=== PATIENT | male | born 1955 | race Caucasian/White ===

== ENCOUNTER 2019-07-02 10:33 | Day surgery (SDC) | payer OTHER ==
[~2019-07-02] VITALS: Ht 185.4 cm; Wt 104.3 kg
--- NOTE | ~2019-07-02 | O ---
[facility] [place] [address] OPERATIVE REPORT Name: KEREN REIS Room #: 150-5 [facility].#: [id number] Admission: 07/02/19 Attend Phys: Arvind Thurston MD Discharge: Date of : 55 Report #: [id number] THIS REPORT FOR: //name// CC: Arvind Thurston Physician staff KOURTNEY ALFARO DATE OF SERVICE: 07/02/2019 PREOPERATIVE DIAGNOSIS: Left hallux valgus. POSTOPERATIVE DIAGNOSIS: Left hallux valgus. PROCEDURE: Left foot Lapidus type procedure with modified Resendiz. SURGEON: Dr. Arvind Thurston. MARKETING OPERATIONS ANALYST: Otilia Eng. ANESTHESIA: General. ESTIMATED BLOOD LOSS: Minimal. DRAINS: No drains. TOURNIQUET TIME: 75 minutes. DESCRIPTION OF PROCEDURE: The patient brought to the operating room where he was placed under general anesthesia. Once under adequate general anesthesia, his left lower extremity was prepped and draped in sterile manner. The extremity was elevated, exsanguinated, tourniquet placed 300 mmHg. A dorsal incision over the first TMT joint was then made. This was dissected directly down to the joint. A sagittal saw was used to then release the joint completely along with a small osteotome. Once this was being achieved, the rotation pin was placed and subsequent reduction along with rotation was satisfactory. Therefore, we then sized for the cutting guide, which was then fixed into place with pins and the osteotomy through the joint was achieved. Subsequent to this, these cut pieces were removed. The joint was fenestrated with a drill after irrigation and subsequent fixation across the joint was then achieved with compression screws. The fluoroscopy was used throughout the case to verify position and alignment to be satisfactory. The dorsal and medial locking plates were then placed. Excellent fixation and alignment was achieved as verified under fluoroscopy. The distal incision over the metatarsal head was then made. This was dissected down through the soft tissue to the medial joint capsule [address] [address] OPERATIVE REPORT Name: KEREN REIS Kathy Room #: 150-5 [facility]..#: [id number] Admission: 07/02/19 Attend Phys: Arvind Thurston MD Discharge: Date of : 55 Report #: [id number] which was incised exposing the medial eminence. The medial eminence was then resected utilizing a sagittal saw and a rongeur. The wound was irrigated copiously and the capsular layer was closed with 0 Ethibond. A small incision in the first webspace was then made and dissection carried down to the lateral joint, which was then incised with a 15 blade and fenestrated for a modified Resendiz type procedure releasing the adducted tendon as well. The wounds were then irrigated copiously and closed with 2-0 Vicryl in subcutaneous tissues and saman for the skin. The wounds were dressed with Xeroform, 4 x 4s and a sterile soft compressive dressing was placed. Tourniquet was let down at 75 minutes. Toes were pink and warm with good capillary refill. There were no complications from the procedure. The patient tolerated the procedure well and went to the recovery room without incident. By: [id number] Arvind Thurston MD /nt
[~2019-07-02 10:33] MED LIST: CENTRUM SILVER1 EAC5 PO
[2019-07-02 11:43] VITALS: BP 147/85
[2019-07-02] MEDS ORDERED: PERCOCET 7.5-31 EAC1 PO (13:48)
[2019-07-02 14:21] VITALS: BP 147/85
== END 2019-07-02 15:00 | disposition home or self-care (01) ==
LOC: OR 10:33 → TBA 10:45 → OR 10:51
DX: M20.12 Hallux valgus (acquired), left foot (principal); I48.91 Unspecified atrial fibrillation; F17.220 Nicotine dependence, chewing tobacco, uncomplicated; Z98.890 Other specified postprocedural states; Z98.52 Vasectomy status; Z79.899 Other long term (current) drug therapy; Z79.01 Long term (current) use of anticoagulants
CPT/HCPCS: 50010; 50101; 50386; 55430; 56524; 56525; 57091; 62110; 62900; 70005